=== PATIENT | female | born 1990 | race Two or more races ===

== ENCOUNTER 2020-07-22 18:50 | Observation (INO) | payer MEDICAID, OTHER ==
[~2020-07-22] VITALS: Ht 170.2 cm; Wt 121.6 kg
== END 2020-07-22 20:27 | disposition home or self-care (01) ==
LOC: LDRP 18:50
PROVIDERS: ADMIT Obstetrics & Gynecology; ATTEND Obstetrics & Gynecology
DX: O48.0 Post-term pregnancy (principal); O40.9XX0 Polyhydramnios, unspecified trimester, not applicable or unspecified; O99.891 Other specified diseases and conditions complicating pregnancy; M54.9 Dorsalgia, unspecified; O62.9 Abnormality of forces of labor, unspecified; Z3A.41 41 weeks gestation of pregnancy
CPT/HCPCS: 59025; 76818; 81002; G0378